=== PATIENT | male | born 1955 | race Two or more races ===

== ENCOUNTER 2021-12-17 16:09 | Emergency (ER) | payer OTHER ==
[~2021-12-17] VITALS: Ht 175.3 cm; Wt 90.7 kg
[2021-12-17 16:09] VITALS: BP 147/91
[2021-12-17] MEDS ORDERED: KETOROLAC TROMETH 30 MG/ML 1ML VIAL IV ONE (17:15)
[2021-12-17] MEDS ORDERED: fentaNYL CITRATE 100 MCG/2 ML VL IV ONE (17:15)
== END 2021-12-17 19:45 | disposition left against medical advice (07) ==
LOC: EDBD 16:09 → ER 16:09
DX: R07.81 Pleurodynia (principal); E11.9 Type 2 diabetes mellitus without complications; E78.5 Hyperlipidemia, unspecified; Z90.49 Acquired absence of other specified parts of digestive tract; W18.39XA Other fall on same level, initial encounter; Y93.89 Activity, other specified; Y92.89 Other specified places as the place of occurrence of the external cause; Y99.8 Other external cause status
CPT/HCPCS: 93005